=== PATIENT | female | born 1950 | race Caucasian/White ===

== ENCOUNTER 2021-04-30 13:38 | Emergency (ER) | payer OTHER ==
[~2021-04-30] VITALS: Ht 157.5 cm; Wt 47.6 kg
[2021-04-30] MEDS ORDERED: TETANUS/DIPHTHERIA TOX ADULT 0.5 ML SYR IM ONE (14:00)
[2021-04-30] MEDS ORDERED: ACETAMINOPHEN 325 MG TAB PO PRN (14:00)
[2021-04-30] MEDS ORDERED: MULTI-VITAMIN1 EACH PO (14:04)
[2021-04-30] MEDS ORDERED: BACITRACIN ZINC 0.9GM TP ONE (14:04)
[2021-04-30] MEDS ORDERED: LIDOCAINE VISC 2% SOLN 15 ML UDC ONE (14:05)
[2021-04-30] MEDS ORDERED: TETANUS/DIPHTHERIA TOX ADULT 0.5 ML SYR ONE (14:05)
[2021-04-30] MEDS ORDERED: ACETAMINOPHEN 325 MG TAB ONE (14:05)
[2021-04-30] MEDS ORDERED: LIDOCAINE HCL 1% LOCAL INJ 20 ML VIAL ONE (14:05)
== END 2021-04-30 15:26 | disposition home or self-care (01) ==
LOC: FSED 13:52
DX: S01.01XA Laceration without foreign body of scalp, initial encounter (principal); W01.0XXA Fall on same level from slipping, tripping and stumbling without subsequent striking against object, initial encounter; Y92.008 Other place in unspecified non-institutional (private) residence as the place of occurrence of the external cause
CPT/HCPCS: 12002; 70450; 72125; 90471; 90714; 99283; J2001

== ENCOUNTER 2021-05-13 08:58 | Emergency (ER) | payer OTHER ==
[~2021-05-13] VITALS: Ht 154.9 cm; Wt 51.5 kg
[~2021-05-13 08:58] MED LIST: MULTI-VITAMIN1 EACH PO
== END 2021-05-13 09:55 | disposition home or self-care (01) ==
LOC: FSED 09:41
DX: Z48.02 Encounter for removal of sutures (principal)
CPT/HCPCS: 99282; S0630

== ENCOUNTER 2021-07-01 13:10 | Emergency (ER) | payer OTHER ==
[~2021-07-01] VITALS: Ht 154.9 cm; Wt 51.3 kg
[2021-07-01] MEDS ORDERED: LIDOCAINE PAIN1 EACH TD (16:25)
[2021-07-01] MEDS ORDERED: ADVIL200 MG PO (16:25)
[2021-07-01 16:33] VITALS: BP 136/71
== END 2021-07-01 16:34 | disposition home or self-care (01) ==
LOC: FSED 13:36
DX: M25.552 Pain in left hip (principal); Z88.6 Allergy status to analgesic agent; Z88.0 Allergy status to penicillin
CPT/HCPCS: 72192; 99283

== ENCOUNTER 2024-09-14 09:34 | Emergency (ER) | payer MEDICARE, OTHER ==
[~2024-09-14] VITALS: Ht 157.5 cm; Wt 40.9 kg
[~2024-09-14 09:34] MED LIST changes: +ADVIL200 MG PO; +LIDOCAINE PAIN1 EACH TD
[2024-09-14 11:05] VITALS: PULSE 78; RESP 16; TEMP 98.5; O2SAT 97
== END 2024-09-14 11:05 | disposition home or self-care (01) ==
LOC: FSED 09:43
DX: R53.1 Weakness (principal); R31.9 Hematuria, unspecified; Z11.52 Encounter for screening for COVID-19
CPT/HCPCS: 0223U; 80053; 81003; 85025; 87400; 99284